=== PATIENT | female | born 1960 | race Caucasian/White ===

== ENCOUNTER 2017-10-13 10:11 | Emergency (ER) | payer BC, OTHER ==
--- NOTE | 2017-10-13 10:28 | ED ---
Lower Extremity - HPI Summary HPI Summary: chair patient was sitting in broke she fell out of the chair landing on her knee--left lateral knee hurts patient believes she twisted it when she fell- did not hit head no loc - History of Current Complaint Chief Complaint: EDExtremityLower Stated Complaint: FALL KNEE PAIN Time Seen by Provider: 10/13/17 10:15 Hx Obtained From: Patient, Medical Records Mechanism Of Injury: Fall From Height Of: - about 2 feet from a chair that broke Onset of Pain: Immediate Severity Initially: Moderate Severity Currently: Moderate Pain Intensity: 4 - refusing pain med at this time will apply ice and position for comfort Pain Scale Used: 0-10 Numeric Timing: Constant Location: Is Discrete @ - lateral left knee Character Of Pain: Aching Associated Signs And Symptoms: Positive: Negative Aggravating Factor(s): Nothing Alleviating Factor(s): Nothing Able to Bear Weight: No - has not wb yet - Allergies/Home Medications Allergies/Adverse Reactions: Allergies Allergy/AdvReac Type Severity Reaction Status Date / Time Influenza Virus Vaccines Allergy Severe Anaphylatic Verified 10/13/17 10:29 Shock iodine Allergy Severe Anaphylatic Verified 10/13/17 10:29 Shock latex Allergy Severe Anaphylatic Verified 10/13/17 10:29 Shock Penicillins Allergy Severe Anaphylatic Verified 10/13/17 10:29 Shock shellfish derived Allergy Severe Anaphylatic Verified 10/13/17 10:29 Shock IV contrast Allergy Anaphylatic Uncoded 10/13/17 10:41 Shock PMH/Surg Hx/FS Hx/Imm Hx Previously Healthy: No Cardiovascular History: Reports: Hx Hypertension Respiratory History: Reports: Hx Asthma GI History: Reports: Hx Gastroesophageal Reflux Disease Psychiatric History: Reports: Other Psychiatric Issues/Disorders - Insomnia - Cancer History Hx Hematologic Symptoms: No Hx Chemotherapy: No Hx Radiation Therapy: No Hx Palliative Cancer Treatment: No - Surgical History Hx Anesthesia Reactions: No - Immunization History Hx Pertussis Vaccination: No Immunizations Up to Date: No Infectious Disease History: No Infectious Disease History: Denies: Traveled Outside the [place] in Last 30 Days - Family History Known Family History: Positive: None - Social History Occupation: Employed Full-time Lives: With Family Alcohol Use: Rare Substance Use Type: Reports: None Review of Systems Constitutional: Negative Eyes: Negative ENT: Negative Cardiovascular: Negative Respiratory: Negative Gastrointestinal: Negative Genitourinary: Negative Positive: Arthralgia - left lateral knee Skin: Negative Neurological: Negative Psychological: Normal All Other Systems Reviewed And Are Negative: Yes Physical Exam Triage Information Reviewed: Yes Vital Signs On Initial Exam: Initial Vitals Temp Pulse Resp BP Pulse Ox 99.0 F 87 16 185/94 97 10/13/17 10:12 10/13/17 10:12 10/13/17 10:12 10/13/17 10:12 10/13/17 10:12 Vital Signs Reviewed: No Appearance: Positive: Well-Appearing, No Pain Distress, Obese Skin: Positive: Warm, Skin Color Reflects Adequate Perfusion Head/Face: Positive: Normal Head/Face Inspection Eyes: Positive: Normal, EOMI, JESSE, Conjunctiva Clear ENT: Positive: Normal ENT inspection, Hearing grossly normal. Negative: Nasal congestion, Trismus, Muffled voice, Hoarse voice Neck: Positive: Supple, Nontender, No Lymphadenopathy Respiratory/Lung Sounds: Positive: Clear to Auscultation, Breath Sounds Present Cardiovascular: Positive: Normal, RRR, S1, S2 Abdomen Description: Positive: Nontender, No Organomegaly, Soft Bowel Sounds: Positive: Present Musculoskeletal: Positive: Pain @ - left lateral knee Neurological: Positive: Normal, Sensory/Motor Intact, Alert, Oriented to Person Place, Time, CN Intact II-III Psychiatric: Positive: Normal AVPU Assessment: Alert - [place] Coma Scale Best Eye Response: 4 - Spontaneous Best Motor Response: 6 - Obeys Commands Best Verbal Response: 5 - Oriented Coma Scale Total: 15 Diagnostics - Vital Signs Vital Signs Temp Pulse Resp BP Pulse Ox 10/13/17 10:12 99.0 F 87 16 185/94 97 - Laboratory Lab Statement: Any lab studies that have been ordered have been reviewed, and results considered in the medical decision making process. - Radiology No standard instances Xray Interpretation: No Acute Changes Radiology Interpretation Completed By: Radiologist - chronic arthretic and osteopenic changes Lower Extremity Course/Dx - Course Assessment/Plan: ken wrap, continue mobic may add tylenol prn, RICE follow with [facility] in [place] as needed - Diagnoses Provider Diagnoses: Knee injuries, Left knee injury, Hypertension not at goal Discharge - Discharge Plan Condition: Stable Disposition: HOME Patient Education Materials: Knee Pain (ED), R.I.C.E. Treatment (ED), Hypertension (ED) Referrals: John Colindres MD [Primary Care Provider] - 1 Week Additional Instructions: follow at [facility] for continued or worsening pain in the next 3-4 days
--- NOTE | 2017-10-13 11:10 | RAD ---
HISTORY: Fall, lateral pain COMPARISONS: October 29, 2009 VIEWS: 5, Frontal, lateral, axial, and oblique views of the left knee FINDINGS: BONE DENSITY: There is diffuse osteopenia. 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 There is no suprapatellar joint effusion or lipohemarthrosis. ALIGNMENT: There is no dislocation. SOFT TISSUES: Unremarkable. OTHER FINDINGS: There has been progression of disease compared to 2010. IMPRESSION: 1. OSTEOPENIA. 2. OSTEOARTHRITIS. 3. NO ACUTE OSSEOUS INJURY. IF SYMPTOMS PERSIST, RECOMMEND REPEAT IMAGING
[2017-10-13 11:52] VITALS: BP 179/99
== END 2017-10-13 11:43 | disposition home or self-care (01) ==
LOC: ED 10:11
DX: S89.92XA Unspecified injury of left lower leg, initial encounter (principal); W07.XXXA Fall from chair, initial encounter; Y92.9 Unspecified place or not applicable; I10 Essential (primary) hypertension; M85.862 Other specified disorders of bone density and structure, left lower leg; M17.12 Unilateral primary osteoarthritis, left knee; Z88.0 Allergy status to penicillin; Z88.7 Allergy status to serum and vaccine; Z91.041 Radiographic dye allergy status
CPT/HCPCS: 99282